=== PATIENT | female | born 1985 | race Caucasian/White ===

== ENCOUNTER 2017-12-25 23:13 | Emergency (ER) | payer BC ==
[2017-12-25] MEDS ORDERED: Ibuprofen 200 MG TAB ONE (23:41)
== END 2017-12-26 00:05 | disposition short-term general hospital (02) ==
LOC: NAV ERS 23:13
DX: R10.2 Pelvic and perineal pain (principal)
CPT/HCPCS: 99284

== ENCOUNTER 2018-01-25 22:42 | Emergency (ER) | payer BC ==
[2018-01-25] MEDS ORDERED: Lidocaine Viscous Sol 2% 15 ml UD Cup ONE (23:08)
[2018-01-25] MEDS ORDERED: Mag-Al Plus 1200 MG/1200 MG/120 MG/30 ML UDCUP ONE (23:08)
== END 2018-01-25 23:59 | disposition home or self-care (01) ==
LOC: NAV ERS 22:42
DX: R10.12 Left upper quadrant pain (principal); D64.9 Anemia, unspecified; F17.210 Nicotine dependence, cigarettes, uncomplicated
CPT/HCPCS: 99283

== ENCOUNTER 2020-09-21 17:56 | Emergency (ER) | payer BC, OTHER ==
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
[2020-09-21] MEDS ORDERED: Ibuprofen 800 MG TAB ONE (19:14)
[2020-09-21] MEDS ORDERED: Cyclobenzaprine 10 MG TAB ONE (19:14)
== END 2020-09-21 19:29 | disposition home or self-care (01) ==
LOC: NAV ERS 17:56
DX: S13.4XXA Sprain of ligaments of cervical spine, initial encounter (principal); M54.9 Dorsalgia, unspecified; R10.32 Left lower quadrant pain; R10.31 Right lower quadrant pain; F17.210 Nicotine dependence, cigarettes, uncomplicated; D64.9 Anemia, unspecified; V89.2XXA Person injured in unspecified motor-vehicle accident, traffic, initial encounter
CPT/HCPCS: 70450; 72125

== ENCOUNTER 2020-09-23 21:00 | Emergency (ER) | payer BC, OTHER ==
[2020-09-23] MEDS ORDERED: Ibuprofen 200 MG TAB ONE (21:29)
[2020-09-23 21:58] LABS: Bilirubin Negative (Negative); Blood, Urine Negative (Negative); Clarity Clear (Clear); Glucose, Urine (Dipstick) Negative (Negative); Ketone, Urine Negative (Negative); Leukocyte Negative (Negative); Nitrite Negative (Negative); Protein, Urine (Dipstick) Negative (Neg-Trace); Urobilinogen 0.2 mg/dL (Less than 2)
[2020-09-23 21:59] LABS: Pregnancy Test - Urine (BHCG) Negative (Negative); Pregu Control Background? CLEAR/WHITE (CLR/WHITE); Pregu Control Bar Appear? YES (CONTROL BAR)
[2020-09-23 22:01] LABS: #Basophils 0.2 thou/uL (0.0-0.2); #Eosinphils 0.5 thou/uL (0.0-0.7); #Lymphocytes 2.2 thou/uL (1.20-3.40); #Monocytes 0.7 thou/uL (0.11-0.59); #Neutrophils 3.7 thou/uL (1.40-6.50); %Basophils 2.1 % (0.0-1.0); %Eosinophils 7.3 % (0.0-10.0); %Lymphocytes 29.8 % (21.0-51.0); %Monocytes 10.1 % (0.0-10.0); %Neutrophils 50.7 % (42.0-75.0); Hemoglobin 10.3 g/dL (12.0-16.0); Mean Corpuscular HGB CONC 32.9 g/dL (32.0-36.0); Mean Corpuscular Hemoglobin 28.7 pg (27.0-31.0); Mean Corpuscular Volume 87.3 fL (78.0-98.0); Mean Platelet Volume 5.9 fL (7.4-10.4); Platelet Count 331 thou/uL (130-400); RBC Distribution Width 14.1 % (11.5-14.5); Red Blood Cell (RBC) Count 3.58 mill/uL (4.20-5.40); White Blood Cell (WBC) Count 7.3 thou/uL (4.8-10.8)
[2020-09-23 22:13] LABS: ALT (SGPT) 14 U/L (8-55); AST (SGOT) 13 U/L (5-34); Alkaline Phosphatase 46 U/L (40-110); Anion Gap 13 mmol/L (10-20); BUN (Urea Nitrogen) 9 mg/dL (7.0-18.7); Bilirubin, Total 0.2 mg/dL (0.2-1.2); Calc. Creatinine Clearance 0 mL/min (70-130); Calcium 8.6 mg/dL (7.8-10.44); Carbon Dioxide 27 mmol/L (22-29); Chloride 104 mmol/L (98-107); Globulin 2.5 g/dL (2.4-3.5); Glucose 89 mg/dL (70-105); Lipase 27 U/L (8-78); Potassium 3.9 mmol/L (3.5-5.1); Protein, Total 6.5 g/dL (6.0-8.3); Sodium 140 mmol/L (136-145)
--- NOTE | 2020-09-23 22:20 | CT ---
CT of abdomen and pelvis: 09/23/2020 COMPARISON: None HISTORY: Left lower quadrant pain TECHNIQUE: Axial CT imaging at 5 mm intervals from lung bases through pubic symphysis without contras t. Coronal reformatted imaging obtained. FINDINGS: Lack of contrast media limits assessment of the viscera, bowel, vascular structures, and fo r lymphadenopathy. Imaged lung bases are unremarkable. No free intraperitoneal air. The stomach is filled with debris. T he gallbladder is not well visualized. Limited assessment of the liver, spleen, pancreas, adrenal glands, and kidneys appears unremarkable with no hydronephrosis or nephrolithiasis evident. Limited e valuation of the bowel demonstrates no evidence for obstruction. Appendix appears grossly unremarkable. No acute osseous abnormality. IMPRESSION: No nephrolithiasis or evidence of obstructive uropathy.
[2020-09-23] MEDS ORDERED: Ondansetron ODT 4 MG TAB ONE (22:44)
== END 2020-09-23 22:49 | disposition home or self-care (01) ==
LOC: NAV ERS 21:00
DX: S06.0X9A Concussion with loss of consciousness of unspecified duration, initial encounter (principal); S39.011A Strain of muscle, fascia and tendon of abdomen, initial encounter; D64.9 Anemia, unspecified; V89.2XXA Person injured in unspecified motor-vehicle accident, traffic, initial encounter
CPT/HCPCS: 74176; 80053; 81003; 81025; 83690; 85025; Q0162